=== PATIENT | male | born 1995 | race Caucasian/White ===

== ENCOUNTER 2018-01-25 20:14 | Emergency (ER) | payer OTHER ==
[~2018-01-25] VITALS: Ht 175.3 cm; Wt 75.2 kg
[~2018-01-25 20:14] MED LIST: AZIT250T PO; GABA-586 PO
--- NOTE | 2018-01-25 20:47 | PHYS DOC ---
Past History Past Medical History: No Pertinent History Past Surgical History: Other Smoking: Non-smoker Alcohol Use: None Drug Use: None Adult General Chief Complaint Chief Complaint: CHEST PAIN HPI HPI Patient is a 22 year old male who presents with complaint of right-sided chest pain. Patient states that he has been having pain over the course the last 3-4 days. The patient states that the pain has felt like pressure and worsens when he takes a deep breath or coughs. Patient states he's had mild shortness of breath associated with symptoms. Patient denies any known fever. Patient states that he place softball but does not remember any particular movement that may have caused injury to his chest. The patient states that he has had history of tension pneumothorax caused by a bone spur of the left fifth rib that was treated in 2016. The patient states that his current pain does not feel similar to that episode, but given his previous history he wanted to come to the emergency department for evaluation. Patient has not taken any medications for his symptoms. On my evaluation the patient rates his pain as 7 out of 10. Review of Systems Review of Systems Constitutional: Denies fever or chills [] Eyes: Denies change in visual acuity, redness, or eye pain [] HENT: Denies nasal congestion or sore throat [] Respiratory: Shortness of breath, denies cough[] Cardiovascular: Chest pain, denies edema[] GI: Denies abdominal pain, nausea, vomiting, bloody stools or diarrhea [] : Denies dysuria or hematuria [] Musculoskeletal: Denies back pain or joint pain [] Integument: Denies rash or skin lesions [] Neurologic: Denies headache, focal weakness or sensory changes [] All other systems were reviewed and found to be within normal limits, except as documented in this note. Allergies Allergies Allergies Coded Allergies Type Severity Reaction Last Updated Verified No Known Drug Allergies 03/28/15 No Physical Exam Physical Exam Constitutional: Alert, afebrile, vital signs stable, no acute distress. [] HENT: Normocephalic, atraumatic, bilateral external ears normal, oropharynx moist, no oral exudates, nose normal. [] Eyes: PERRLA, EOMI, conjunctiva normal, no discharge. [] Neck: Normal range of motion, no tenderness, supple, no stridor. [] Cardiovascular:Heart rate regular rhythm, no murmur [] Lungs & Thorax: Bilateral breath sounds clear to auscultation [] Abdomen: Bowel sounds normal, soft, no tenderness, no masses, no pulsatile masses. [] Skin: Warm, dry, no erythema, no rash. [] Back: No tenderness, no CVA tenderness. [] Extremities: No tenderness, no cyanosis, no clubbing, ROM intact, no edema. [] Neurologic: Alert and oriented X 3, normal motor function, normal sensory function, no focal deficits noted. [] Current Patient Data Vital Signs Vital Signs Date Time Temp Pulse Resp B/P (MAP) Pulse Ox O2 Delivery O2 Flow Rate FiO2 01/25/18 20:57 69 16 140/71 (94) 97 Room Air 01/25/18 20:14 99.1 Lab Results Current Medications Medications (Trade) Dose Ordered Sig/Brunilda Route PRN Reason Start Time Stop Time Status Last Admin Dose Admin Cyclobenzaprine HCl (Flexeril) 10 mg 1X ONCE PO 01/25/18 21:15 01/25/18 21:15 DC 01/25/18 20:59 Ibuprofen (Motrin) 600 mg 1X ONCE PO 01/25/18 21:00 01/25/18 21:01 DC 01/25/18 20:59 EKG EKG Interpreted by me: Heart rate 88, sinus rhythm, normal intervals, normal axis, nonspecific T-wave inversion in lead 3, no acute ST elevations or depressions[] Radiology/Procedures Radiology/Procedures Two-view chest x-ray interpreted by me: No infiltrate, no effusions, no evidence of pneumothorax, normal cardiac silhouette[] Course & Med Decision Making Course & Med Decision Making Pertinent Labs and Imaging studies reviewed. (See chart for details) Chest x-ray negative for pneumothorax. Patient's symptoms appear consistent with deep intercostal muscle strain. Patient started on Flexeril and ibuprofen. Advised follow-up in 3 days a primary doctor for reevaluation. Advised return emergency department for any worsening symptoms. Patient voiced understanding and in agreement with treatment plan. Dragon Disclaimer Dragon Disclaimer This electronic medical record was generated, in whole or in part, using a voice recognition dictation system. Departure Departure: Impression: Primary Impression: Chest wall pain Disposition: HOME, SELF-CARE Condition: GOOD Referrals: LENI MARIE MD (PCP) Patient Instructions: Chest Wall Pain Additional Instructions: Follow-up in the next 3 days with primary doctor for reevaluation. Return to the emergency department for any worsening symptoms. Scripts Ibuprofen (IBUPROFEN) 600 Mg Tablet 600 MG PO Q6HRS PRN for PAIN, #30 TAB Prov: JAYLEN DU MD 01/25/18 Cyclobenzaprine Hcl (CYCLOBENZAPRINE HCL) 10 Mg Tablet 1 TAB PO TID PRN for MUSCLE SPASMS, #30 TAB Prov: JAYLEN DU MD 01/25/18 JAYLEN DU MD January 25, 2018 20:47
[2018-01-25] MEDS ORDERED: IBUP600T16 PO (20:54)
[2018-01-25] MEDS ORDERED: CYCL-331 PO (20:54)
[2018-01-25 20:57] VITALS: BP 140/71
[2018-01-25] MEDS ORDERED: IBUPROFEN 600 MG TABLET. PO ONE (21:00)
[2018-01-25] MEDS ORDERED: CYCLOBENZAPRINE 10 MG TABLET. PO ONE (21:15)
--- NOTE | 2018-01-25 22:58 | EKG ---
[address] [address] Test Date: 2018-01-25 Test Time: 20:32:23 Pat Name: TAMI WU Department: Room: Gender: M Etcher [employer]: : 1995 Requested By: JAYLEN DU Order Number: [id number] Reading MD: Measurements Intervals [place] Rate: 88 P: 57 HI: 146 QRS: 64 QRSD: 84 T: 17 QT: 356 QTc: 434 Interpretive Statements SINUS RHYTHM NO SPECIFIC ECG ABNORMALITIES RI6.01 No previous ECG available for comparison
--- NOTE | 2018-01-25 23:34 | RAD ---
PA and lateral chest radiographs 01/25/2018 Clinical History: Right-sided chest pain and shortness of breath.. PA and lateral digital radiographs of the chest were obtained. Comparison study is dated 10/24/2016. The cardiac and mediastinal silhouettes are within normal limits in size and configuration. No pulmonary infiltrate is seen. No pleural effusion or pneumothorax is noted. The osseous structures are unchanged. Impression: No radiographic evidence of active cardiopulmonary disease. Electronically signed by: Archie Garcia MD (01/25/2018 11:30 PM) [facility]
== END 2018-01-25 21:00 | disposition home or self-care (01) ==
LOC: ER 20:14
DX: R07.89 Other chest pain (principal)
CPT/HCPCS: 71046; 93005; 99284

== ENCOUNTER → 2018-07-11 | Outpatient (CLI) | payer OTHER ==
[~2018-07-11] MED LIST changes: +CYCL-331 PO; +IBUP600T16 PO; +IOHEXOL 300 MG/ML 75 ML VIAL. IV ONE
--- NOTE | 2018-07-11 13:27 | RAD ---
CT of the chest with contrast, 07/11/2018: HISTORY: Previous left rib surgery, right lung nodule Multidetector CT imaging was performed following an IV bolus injection of iodinated contrast material. Comparison is made to a study from 01/28/2018. There is an 9 mm noncalcified pulmonary nodule in the posterior aspect of the right upper lobe abutting the fissure as seen on axial image 198 of series #7. It appears unchanged in size since 01/28/2018. No other pulmonary nodule is seen. No pulmonary consolidation or pleural fluid is evident. Previously seen mediastinal and right hilar adenopathy has regressed. A subcarinal lymph node which previously measured 2.5 cm in AP dimension now measures 1.3 cm. Right paratracheal and right hilar adenopathy as also regressed. Anterior mediastinal soft tissue densities are unchanged and were also evident on an older study from 02/22/2016. 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 No new chest abnormality is detected. IMPRESSION: 1. Stable right upper lobe pulmonary nodule. 2. Mediastinal and right hilar adenopathy has regressed suggesting an infectious/inflammatory etiology. 3. Unchanged anterior mediastinal soft tissue, likely representing residual thymic tissue. 4. No new chest abnormality is detected. PQRS Compliance Statement: One or more of the following individualized dose reduction techniques were utilized for this examination: 1. Automated exposure control 2. Adjustment of the mA and/or kV according to patient size 3. Use of iterative reconstruction technique Electronically signed by: Paco Brooks MD (07/11/2018 1:24 PM) [facility]
== END | disposition home or self-care (01) ==
LOC: MERGE 10:47 → CT 10:47
PROVIDERS: ATTEND Internal Medicine Pulmonary Disease
DX: R91.1 Solitary pulmonary nodule (principal); R59.0 Localized enlarged lymph nodes
CPT/HCPCS: 71260; Q9967

== ENCOUNTER 2020-01-18 12:20 | Emergency (ER) | payer OTHER ==
[~2020-01-18] VITALS: Ht 175.3 cm; Wt 78.7 kg
[~2020-01-18 12:20] MED LIST changes: -IOHEXOL 300 MG/ML 75 ML VIAL. IV ONE
[2020-01-18] MEDS ORDERED: TETRACAINE 0.5% OPHTH SOLUTION 4ML BOTTLE. ONE (12:35)
[2020-01-18] MEDS ORDERED: FLUORESCEIN 1MG EYE STRIP. ONE ×2 (12:36→12:55)
[2020-01-18] MEDS ORDERED: IOHEXOL 350 MG/ML 100 ML VIAL. IV ONE (13:00)
--- NOTE | 2020-01-18 13:05 | PHYS DOC ---
Past History Past Medical History: No Pertinent History Past Surgical History: Other Smoking: Non-smoker Alcohol Use: Occasionally Drug Use: None General Adult EDM: Chief Complaint: EYE PROBLEMS HPI: HPI: Patient is a healthy 24-year-old male who presents to the emergency department for evaluation of left-sided retro-orbital pain and supraorbital pain. He states the pain has been bothering him for about a week, but gradually worsened over the past few days, to the point that it became severe today. He denies any abrupt or thunderclap onset of his pain. He denies any diffuse or global headache, his pain is limited to the area just below and under his eyebrow. There are no definite alleviating or exacerbating factors to his symptoms, movement does not seem to affect his eye, nor does light. He has had some c lear tearing/drainage from his eye but has not had any purulence. He denies any photophobia, nausea, vomiting, numbness, weakness, and has not noted any vision changes. He does not wear any corrective lenses. There are no known alleviating or exacerbating factors to his symptoms. Review of Systems: Review of Systems: Constitutional: Denies fever or chills Eyes: Denies change in visual acuity HENT: Denies otalgia or sore throat. Has had some mild nasal congestion Respiratory: Denies cough or shortness of breath Cardiovascular: Denies chest pain or edema GI: Denies abdominal pain, nausea, vomiting, bloody stools or diarrhea : Denies dysuria Musculoskeletal: Denies back pain or joint pain Integument: Denies rash Neurologic: Denies headache, focal weakness or sensory changes Endocrine: Denies polyuria or polydipsia Lymphatic: Denies swollen glands Psychiatric: Denies depression or anxiety Heart Score: Risk Factors: Risk Factors: DM, Current or recent (<one month) smoker, HTN, HLP, family history of CAD, obesity. Risk Scores: Score 0 - 3: 2.5% MACE over next 6 weeks - Discharge Home Score 4 - 6: 20.3% MACE over next 6 weeks - Admit for Clinical Observation Score 7 - 10: 72.7% MACE over next 6 weeks - Early Invasive Strategies Current Medications: Current Meds: Current Medications Medications (Trade) Dose Ordered Sig/Brunilda Start Time Stop Time Status Last Admin Dose Admin Fluorescein Sodium (Ful-Ana 1mg) 1 strip STK-MED ONCE 01/18/20 12:55 01/18/20 12:55 DC Iohexol (Omnipaque 350 Mg/ml) 100 ml 1X ONCE 01/18/20 13:00 01/18/20 13:01 DC Tetracaine HCl (Tetracaine) 40 drop STK-MED ONCE 01/18/20 12:35 01/18/20 12:35 DC Allergies: Allergies: Allergies Coded Allergies Type Severity Reaction Last Updated Verified No Known Drug Allergies 03/28/15 No Physical Exam: PE: PHYSICAL EXAM: CONSTITUTIONAL: Well developed, well nourished HEAD: normocephalic, atraumatic EENT: PERRL, EOMI. there is very slight conjunctival injection on the left, none on the right, sclerae non-icteric; moist mucous membranes. Fluorescein examination is unremarkable bilaterally. There is no direct or consensual photophobia. There is no pain with ocular movement. There is no abnormality noted on nondilated funduscopic exam. Intraocular pressures are 19 on the left, 18 on the right, measured by Richie-Pen. NECK: Supple, non-tender; no meningismus. LUNGS: Lungs CTA, breathing even and unlabored. Normal air movement. HEART: Regular rate and rhythm, no murmur CHEST: No deformity; non-tender ABDOMEN: The abdomen is soft, and non-tender, no masses or bruits. EXTREM: Normal ROM; no deformity, no calf tenderness. Normal pulses palpable in all extremities. There is no pedal edema. SKIN: No rash; no diaphoresis NEURO: Alert; normal speech and cognition; CN's grossly intact; strength grossly intact without focal deficit. BACK: No CVA TTP. Current Patient Data: Labs: Laboratory Tests Test 01/18/20 13:04 White Blood Count 7.5 x10^3/uL Red Blood Count 4.85 x10^6/uL Hemoglobin 14.6 g/dL Hematocrit 43.0 % Mean Corpuscular Volume 89 fL Mean Corpuscular Hemoglobin 30 pg Mean Corpuscular Hemoglobin Concent 34 g/dL Red Cell Distribution Width 13.1 % Platelet Count 269 x10^3/uL Neutrophils (%) (Auto) 61 % Lymphocytes (%) (Auto) 25 % Monocytes (%) (Auto) 10 % Eosinophils (%) (Auto) 2 % Basophils (%) (Auto) 1 % Neutrophils # (Auto) 4.6 x10^3uL Lymphocytes # (Auto) 1.9 x10^3/uL Monocytes # (Auto) 0.8 x10^3/uL Eosinophils # (Auto) 0.2 x10^3/uL Basophils # (Auto) 0.1 x10^3/uL Erythrocyte Sedimentation Rate Pending Sodium Level 139 mmol/L Potassium Level 4.1 mmol/L Chloride Level 101 mmol/L Carbon Dioxide Level 28 mmol/L Anion Gap 10 Blood Urea Nitrogen 14 mg/dL Creatinine 1.0 mg/dL Estimated GFR (Cockcroft-Gault) 92.6 Glucose Level 85 mg/dL Calcium Level 9.3 mg/dL C-Reactive Protein < 0.5 mg/L Current Medications Medications (Trade) Dose Ordered Sig/Brunilda Route PRN Reason Start Time Stop Time Status Last Admin Dose Admin Tetracaine HCl (Tetracaine) 40 drop STK-MED ONCE .ROUTE 01/18/20 12:35 01/18/20 12:35 DC Fluorescein Sodium (Ful-Ana 1mg) 1 strip STK-MED ONCE .ROUTE 01/18/20 12:36 01/18/20 12:36 DC Fluorescein Sodium (Ful-Ana 1mg) 1 strip STK-MED ONCE .ROUTE 01/18/20 12:55 01/18/20 12:55 DC Iohexol (Omnipaque 350 Mg/ml) 100 ml 1X ONCE IV 01/18/20 13:00 01/18/20 13:01 DC 01/18/20 13:21 Tetracaine HCl (Tetracaine) 1 drop 1X ONCE OU 01/18/20 13:20 01/18/20 13:21 DC 01/18/20 13:31 Fluorescein Sodium (Ful-Ana 1mg) 1 strip 1X ONCE OU 01/18/20 13:20 01/18/20 13:21 DC 01/18/20 13:31 EKG: EKG: [] Radiology/Procedures: Radiology/Procedures: PROCEDURE: CT ORBITS WO CONTRAST CT ORBITS WO CONTRAST History: Left retro-orbital pain. Comparison: None. Technique: Noncontrast CT imaging was performed of the orbits. Coronal and sagittal reconstructions were performed. Exposure: One or more of the following individualized dose reduction techniques were utilized for this examination: 1. Automated exposure control 2. Adjustment of the mA and/or kV according to patient size 3. Use of iterative reconstruction technique. Findings: Normal symmetric appearance of the globes. Retro-orbital fat appears clear. Symmetric appearance of the extraocular muscles and optic nerve. Complete opacification of the left frontal, frontal ethmoidal recess and anterior ethmoid air cells. No evidence of adjacent periosteal abscess. Right inferior maxillary sinus mucous retention cyst or polyp. Additional mild scattered mucosal thickening. Mastoid air cells are clear. No acute fracture. Impression: 1. Complete opacification of the left frontal and anterior ethmoid sinus as well as the frontal ethmoidal recess, may represent acute sinusitis in the appropriate clinical setting. [] PROCEDURE: CT ANGIOGRAPHY HEAD EXAM: CT Angiogram of the Head INDICATION: Left retro-orbital pain TECHNIQUE: CT images were obtained through the head per standard CTA protocol. Multiplanar and 3D reformatted images were generated from the CT dataset on an independent workstation. All CT scans performed at this facility utilize dose optimization techniques as appropriate to the exam, including the following: Automated exposure control and adjustment of the mA and/or KV according to patient size (this includes techniques or standardized protocols for targeted exams where dose is indication/reason for exam). IV CONTRAST: Administered COMPARISON: CT orbits of the same day FINDINGS: No high-grade large vessel stenosis, proximal or branch vessel occlusion, aneurysm, or vascular malformation. ANTERIOR CIRCULATION: Anterior and middle cerebral arteries are widely patent. ANTERIOR COMMUNICATING ARTERY: Patent. POSTERIOR COMMUNICATING ARTERIES: Present bilaterally and patent. POSTERIOR CIRCULATION: Vertebral and basilar arteries are widely patent. Bilateral posterior inferior cerebellar arteries (PICAs), anterior inferior cerebellar arteries (AICAs), and superior cerebellar arteries (SCAs) are visualized and patent. OTHER: No abnormal brain parenchymal enhancement. The imaged paranasal sinuses show some slight mucosal thickening in the right maxillary antrum. The bilateral superior pelvic veins are not engorged. No abnormal enhancement of the cavernous sinuses. IMPRESSION: Normal CTA of the head. Course & Med Decision Making: Course & Med Decision Making Pertinent Labs and Imaging studies reviewed. (See chart for details). Differential diagnosis included, although was not typical for, orbital cellulitis, aneurysm, venous thrombosis, retrobulbar mass or hemorrhage, or other pathology. I did discuss imaging options with the radiologist based on the clinical presentation and differential diagnosis. Imaging does show evidence of acute sinusitis, which was not considered, but now appears to explain the patient's symptoms. [] Patient remains stable. I discussed test results, the need for close follow- up, for formal eye exam to rule out ocular pathology, the need for PCP follow- up, possible ENT referral if symptoms persist, and return precautions. Dragon Disclaimer: Dragon Disclaimer: This electronic medical record was generated, in whole or in part, using a voice recognition dictation system. Departure Departure: Impression: Primary Impression: Acute sinusitis Disposition: 01 HOME/RESIDENCE PRIOR TO ADM Condition: STABLE Referrals: PCP,UNKNOWN (PCP) FRANSISCA JACKSON DO Patient Instructions: Sinusitis Scripts Oxymetazoline Hcl (AFRIN) 15 Ml Mist 15 ML NS Q6H for - for 3 Days, #1 BOT Prov: SELENA HERR MD 01/18/20 Amoxicillin/Potassium Clav (AUGMENTIN 500-125 TABLET) 1 Each Tablet 1 TAB PO TID for - for 10 Days, #30 TAB 0 Refills Prov: SELENA HERR MD 01/18/20 SELENA HERR MD January 18, 2020 13:05
[2020-01-18 13:16] LABS: BASO # 0.1 x10^3/uL (0.0-0.2); BASO % 1 % (0-3); EOS # 0.2 x10^3/uL (0.0-0.7); EOS % 2 % (0-3); HEMOGLOBIN 14.6 g/dL (13.0-17.5); LYMPH # 1.9 x10^3/uL (1.0-4.8); LYMPH % 25 % (24-48); MEAN CORPUSCULAR HEMOGLOBIN 30 pg (25-35); MEAN CORPUSCULAR HGB CONC 34 g/dL (31-37); MEAN CORPUSCULAR VOLUME 89 fL (79-100); MONO # 0.8 x10^3/uL (0.0-1.1); MONO % 10 % (0-9); NEUT # 4.6 x10^3uL (1.8-7.7); NEUT % 61 % (31-73); PLATELET COUNT 269 x10^3/uL (140-400); RED BLOOD COUNT 4.85 x10^6/uL (4.30-5.70); RED CELL DISTRIBUTION WIDTH 13.1 % (11.5-14.5); WHITE BLOOD COUNT 7.5 x10^3/uL (4.0-11.0)
[2020-01-18] MEDS ORDERED: TETRACAINE 0.5% OPHTH SOLUTION 4ML BOTTLE. OU ONE (13:20)
[2020-01-18] MEDS ORDERED: FLUORESCEIN 1MG EYE STRIP. OU ONE (13:20)
[2020-01-18 13:25] LABS: ANION GAP 10 (6-14); BLOOD UREA NITROGEN 14 mg/dL (8-26); CALCIUM 9.3 mg/dL (8.5-10.1); CARBON DIOXIDE 28 mmol/L (21-32); CHLORIDE 101 mmol/L (98-107); GFR 92.6; GLUCOSE 85 mg/dL (70-99); POTASSIUM 4.1 mmol/L (3.5-5.1); SODIUM 139 mmol/L (136-145)
--- NOTE | 2020-01-18 13:27 | RAD ---
CT ORBITS WO CONTRAST History: Left retro-orbital pain. Comparison: None. Technique: Noncontrast CT imaging was performed of the orbits. Coronal and sagittal reconstructions were performed. Exposure: One or more of the following individualized dose reduction techniques were utilized for this examination: 1. Automated exposure control 2. Adjustment of the mA and/or kV according to patient size 3. Use of iterative reconstruction technique. Findings: Normal symmetric appearance of the globes. Retro-orbital fat appears clear. Symmetric appearance of the extraocular muscles and optic nerve. Complete opacification of the left frontal, frontal ethmoidal recess and anterior ethmoid air cells. No evidence of adjacent periosteal abscess. Right inferior maxillary sinus mucous retention cyst or polyp. Additional mild scattered mucosal thickening. Mastoid air cells are clear. No acute fracture. Impression: 1. Complete opacification of the left frontal and anterior ethmoid sinus as well as the frontal ethmoidal recess, may represent acute sinusitis in the appropriate clinical setting. Electronically signed by: Nicanor Gómez DO (01/18/2020 1:24 PM) [id number]
[2020-01-18 13:28] LABS: C REACTIVE PROTEIN < 0.5 mg/L (0-3.3)
[2020-01-18 13:41] VITALS: BP 120/73
--- NOTE | 2020-01-18 13:41 | RAD ---
EXAM: CT Angiogram of the Head INDICATION: Left retro-orbital pain TECHNIQUE: CT images were obtained through the head per standard CTA protocol. Multiplanar and 3D reformatted images were generated from the CT dataset on an independent workstation. All CT scans performed at this facility utilize dose optimization techniques as appropriate to the exam, including the following: Automated exposure control and adjustment of the mA and/or KV according to patient size (this includes techniques or standardized protocols for targeted exams where dose is indication/reason for exam). IV CONTRAST: Administered COMPARISON: CT orbits of the same day FINDINGS: No high-grade large vessel stenosis, proximal or branch vessel occlusion, aneurysm, or vascular malformation. ANTERIOR CIRCULATION: Anterior and middle cerebral arteries are widely patent. ANTERIOR COMMUNICATING ARTERY: Patent. POSTERIOR COMMUNICATING ARTERIES: Present bilaterally and patent. POSTERIOR CIRCULATION: Vertebral and basilar arteries are widely patent. Bilateral posterior inferior cerebellar arteries (PICAs), anterior inferior cerebellar arteries (AICAs), and superior cerebellar arteries (SCAs) are visualized and patent. OTHER: No abnormal brain parenchymal enhancement. The imaged paranasal sinuses show some slight mucosal thickening in the right maxillary antrum. The bilateral superior pelvic veins are not engorged. No abnormal enhancement of the cavernous sinuses. IMPRESSION: Normal CTA of the head. Electronically signed by: Ave Otero MD (01/18/2020 1:38 PM) [id number]
[2020-01-18] MEDS ORDERED: AMOX1TAB58 PO (13:46)
[2020-01-18] MEDS ORDERED: OXYM15MI4 NS (13:46)
== END 2020-01-18 13:58 | disposition home or self-care (01) ==
LOC: ER 12:20
DX: J01.90 Acute sinusitis, unspecified (principal); H57.12 Ocular pain, left eye
CPT/HCPCS: 36415; 70480; 70496; 80048; 85025; 86140; 99285; Q9967

== ENCOUNTER → 2021-12-19 | Outpatient (CLI) | payer OTHER ==
[~2021-12-19] MED LIST changes: +AMOX1TAB58 PO; -CYCL-331 PO; +CYCL10TA19 PO; +OXYM15MI4 NS
--- NOTE | 2021-12-19 11:28 | RAD ---
CT THORAX WO History: Follow-up lung nodules. Comparison: CT chest 07/11/2018 Technique: Noncontrast CT of the chest. Findings: Assessment is limited by lack of IV contrast. Cardiovascular: Normal heart size, aorta and pulmonary arteries. No coronary artery calcification. Mediastinum and lucas: Redemonstrated residual thymus, now more fatty in attenuation. Interval develop ment of calcified mediastinal lymph nodes involving the prevascular, subcarinal and right hilar stati ons, measuring up to 1.1 cm diameter. Airways, lungs and pleura: Central airways are patent. Right middle lobe juxtapleural fissural nodule now measures 1.1 cm diameter, minimally increased from 2018 comparison, with new internal calcificat ions. Progression of innumerable small adjacent tree-in-bud nodules in the adjacent right middle lobe . There has been development of new nodular opacities at the anterior segment right upper lobe measur ing up to 1.1 cm diameter, also with associated calcifications and numerous small adjacent tree-in-bu d nodules. No pneumothorax or effusion. Upper abdomen: Limited evaluation of the upper abdomen is unremarkable. Osseous structures and soft tissues: Within normal limits for age. Impression: 1. Interval mild enlargement of right middle lobe nodule with development of new calcifications, pro gression of right middle tree-in-bud nodules, right upper lobe left upper lobe calcified nodules and adjacent tree-in-bud nodules and calcification of mediastinal or hilar adenopathy. These findings mos t likely represent chronic infectious or inflammatory granulomatous process. ------ Exposure: One or more of the following individualized dose reduction techniques were utilized for thi s examination: 1. Automated exposure control 2. Adjustment of the mA and/or kV according to patient size 3. Use of iterative reconstruction technique. Electronically signed by: Cezar Duffy MD (12/19/2021 11:25 AM) [id number]
== END ==
LOC: CT 09:32
PROVIDERS: ATTEND Internal Medicine Pulmonary Disease
DX: R91.1 Solitary pulmonary nodule (principal)
CPT/HCPCS: 71250